=== PATIENT | female | born 1975 | race African-American/Black ===

== ENCOUNTER 2024-03-03 10:01 | Observation (INO) ==
--- NOTE | 2024-03-03 10:25 | Emergency Department Note ---
HPI - General Adult General Chief complaint: Abdominal Pain Stated complaint: blood in urine and cramping Time Seen by Provider: 03/03/24 10:19 Source: patient Mode of arrival: walk-in Limitations: no limitations History of Present Illness HPI narrative: This is a 48 year old female patient that presents to the ER with c/o right flank pain with blood in her urine for 3 days. Patient denies any painful urination, abdominal pain, chest pain, SOB, fever, chills, numbness, tingling, weakness or N/V Onset (ago): day(s) (3) Location: Reports back (rt flank) Radiation: Reports non-radiation Severity: mild Pain Consistency: Reports constant Relieving factors: Reports none Exacerbating factors: Reports none Associated symptoms: Reports denies other symptoms Treatments prior to arrival: Reports none Related Data Home Medications Medication Instructions Recorded Confirmed alprazolam 1 mg tablet mg 09/21/23 amlodipine 5 mg tablet mg 09/21/23 apixaban 5 mg tablet (Eliquis) mg 09/21/23 atorvastatin 40 mg tablet mg 09/21/23 blood sugar diagnostic (OneTouch 09/21/23 09/21/23 Verio test strips) blood-glucose meter,continuous 09/21/23 09/21/23 (Dexcom G7 Entrepreneurial Finance Professor) blood-glucose sensor (Dexcom G7 09/21/23 09/21/23 Sensor device) Previous Rx's Medication Instructions Recorded potassium chloride 10 mEq 10 meq PO DAILY low potassium #5 09/27/23 tablet,extended release tabs Allergies Allergy/AdvReac Type Severity Reaction Status Date / Time No Known Drug Allergies Allergy Verified 03/03/24 10:22 Review of Systems Status of ROS 10 or more systems reviewed and unremark able except as noted in history and below Constitutional Denies: fever, chills, change in weight, fatigue, malaise or night sweats Eyes Denies: change in vision, blurry vision, blind spots or light sensitivity Ears, nose, mouth, and throat Denies: throat pain, neck pain, throat swelling, difficulty swallowing, hoarseness or mouth pain Cardiovascular Denies: chest pain, palpitations, edema, swelling of feet/ankles or lightheadedness Respiratory Denies: shortness of breath, cough, wheezing, stridor, pain on inspiration or change in phlegm color Gastrointestinal Denies: abdominal pain, nausea, vomiting, coffee grounds in vomit, heartburn, diarrhea, constipation, bloating, change in bowel habits or painful bowel movements Genitourinary Denies: painful urination, urinary frequency, urinary urgency or urinary incontinence Musculoskeletal Reports: back pain (rt flank) Integumentary/Breast Denies: rash, itching, redness, skin pain, skin tenderness or skin swelling Neurological Denies: headache, numbness in extremities, weakness in extremities, lack of coordination, dizziness, vertigo or seizure-like activity Psychiatric Denies: anxiety, mood swings, panic attacks, change in sleep pattern or hopelessness Endocrine Denies: excessive urination, excessive thirst, fatigue, cold intolerance or excessive sweating Hematologic/Lymphatic Denies: easy bruising, easy bleeding or enlarged lymph nodes Allergic/Immunologic Denies: hives, throat swelling, tongue swelling, facial swelling or wheezing PFSH PFSH Medical History Hyperlipemia Pulmonary embolism DVT (deep venous thrombosis) Rotator cuff arthropathy of left shoulder Protein deficiency HTN (hypertension) Diabetes Surgical History History of tonsillectomy and adenoidectomy H/O: hysterectomy Social History Smoking status: never smoker Within the past year, how often did you have a drink containing alcohol: never Within the past year, how often did you have six or more drinks on one occasion: never Score interpretation: A score less than 3 is consistent with normal alcohol consumption. Problems where you live: no known problems Little interest or pleasure in doing things: not at all Feeling down, depressed, or hopeless: not at all Exam Constitutional: normal general appearance and no apparent distress Vital Signs - 24 hr 03/03/24 10:15 Temperature 97.5 F L Pulse Rate 81 Respiratory Rate 16 Blood Pressure 120/84 Pulse Oximetry 98 Oxygen Delivery Me thod Room Air HENMT: normocephalic, head/scalp atraumatic, hearing grossly normal bila terally, external ears normal, nasal mucous membranes normal, external nose normal, oral mucous membranes normal and oropharynx normal Eyes: PERRL, EOMs intact bilaterally, conjunctivae normal and no scleral icterus Neck/C-Spine: visual inspection normal, trachea midline and supple Lymph: no lymphadenopathy noted Chest: inspection of chest normal Respiratory: breath sounds equal bilaterally, normal respiratory effort, clear to auscultation bilaterally, no wheezes, no rales, no retractions and no use of accessory muscles Cardiovascular: normal heart rate noted, regular rhythm noted, no gallop, no rub, no murmur, no JVD, no clicks, peripheral pulses 2+ throughout and no additional abnormal heart sounds Gastrointestinal: abdomen normal to inspection, abdomen soft to palpation, nontender to palpation, nontender to percussion, nondistended, normoactive bowel sounds, no hepatosplenomegaly, no masses, no pulsatile mass, no ascites and no hernia Genitourinary: CVA tenderness noted (rt cva tenderness) Back/Pelvis: spine normal to inspection Extremities: normal to inspection, normal to palpation, no tenderness, full ROM, no joint enlargement and no deformity Neurology: no movement abnormality noted, gait normal, no fasciculations noted and GCS normal Skin: skin color normal Course Course Hospital Course: 1450: Due to patient having ongoing flank pain and pyelonephritis will admit patient to the medical floor for further evaluation and treatment. VSS, no s/s of acute distress noted Vital Signs Vital signs: Vital Signs Temperature 97.5 F L 03/03/24 10:15 Pulse Rate 81 03/03/24 10:15 Respiratory Rate 16 03/03/24 10:15 Blood Pressure 120/84 03/03/24 10:15 Pulse Oximetry 98 03/03/24 10:15 Oxygen Delivery Method Room Air 03/03/24 10:15 Temperature 97.5 F L 03/03/24 10:15 Pulse Rate 81 03/03/24 10:15 Respiratory Rate 16 03/03/24 10:15 Blood Pressure 120/84 03/03/24 10:15 Pulse Oximetry 98 03/03/24 10:15 Oxygen Delivery Method Room Air 03/03/24 10:15 Medical Decision Making Differential Diagnosis Differential Diagnosis: viral illness Medical Records Medical records reviewed: Yes I reviewed the patient's medical records Lab Data Lab results reviewed: Yes I reviewed the patient's lab results Labs: Lab Results 03/03/24 03/03/24 03/03/24 Range/Units 10:48 11:40 13:55 WBC 7.9 (4.3-9.3) K/uL RBC 4.2 (4.00-5.50) M/uL Hgb 11.7 L (12.5-15.8) gm/dL Hct 36.0 (35.9-46.7) % MCV 85.5 (81.0-93.7) fl MCH 27.7 (27.6-32.2) pg MCHC 32.4 L (33.1-35.3) g/dl RDW 14.8 H (11.4-14.2) % Plt Count 343 (152-353) K/uL MPV 7.4 (6.9-10.8) fl Gran % 61.6 (47.8-71.3) % Lymph % (Auto) 27.1 (20.0-43.0) % [place] % (Auto) 6.6 (3.6-9.8) % Eos % (Auto) 3.7 H (0.4-2.8) % Baso % (Auto) 1.0 H (0.1-0.85) Lymph # (Auto) 2.1 (1.1-3.1) [place] # (Auto) 0.5 L (1.1-3.1) Eos # (Auto) 0.3 H (0.0-0.2) Baso # (Auto) 0.1 (0.0-0.1) Absolute Gran (auto) 4.9 (2.3-6.0) Sodium 142 (136-145) mmol/L Potassium 3.8 (3.6-5.2) mmol/L Chloride 105.0 (98-107) mmol/L Carbon Dioxide 31 (21-32) mmol/L Anion Gap 6.0 (4-14) mEq/L BUN 6 L (7-18) mg/dL Creatinine 1.1 (0.6-1.3) mg/dL Estimated GFR 61.6 (>59.9) Glucose 150 H (70-110) mg/dL Lactic Acid 1.3 (0.27-1.43) mmol/L Calcium 8.7 (8.5-10.1) mg/dL Total Bilirubin 0.60 (0.0-1.0) mg/dL AST 16 (15-37) U/L ALT 20 L (30-65) U/L Alkaline Phosphatase 94 (50-136) U/L Total Protein 7.2 (6.4-8.2) g/dL Albumin 2.8 L (3.4-5.0) g/dL Urine Color Yellow (STRAW/YELL.) Urine Appearance Clear (CLEAR) Ur Specific [place] 1.005 (1.001-1.035) Urine Protein Negative (NEGATIVE) Urine Glucose (UA) Normal (NORMAL) Urine Ketones Negative (NEGATIVE) Urine Occult Blood 2+ (NEG - TRACE) Urine Nitrite Negative (NEGATIVE) Urine Bilirubin Negative (NEGATIVE) Urine Urobilinogen Normal (NORMAL) Ur Leukocyte Esterase Negative (NEGATIVE) Urine RBC 0 - 2 (0 - 5) Urine WBC Negative ( 0 - 5) Ur Epithelial Cells Few (Few/HPF) Amorphous Sediment Negative (Negative) Urine Bacteria Negative (Negative) Urine Mucus Negative (Negative) Urine Trichomonas Negative (Negative) Urine Yeast Negative (Negative) Fluid pH 6.0 (5 - 9) Discharge Plan Discharge Patient Disposition: Admitted As Observation Condition: Stable Chief Complaint: Abdominal Pain Clinical Impression: Pyelonephritis, UTI (urinary tract infection), Acute flank pain, Hematuria Prescriptions: No Action atorvastatin 40 mg tablet alprazolam 1 mg tablet Patient Comments: TAKE 1/2 (ONE-HALF) TABLET BY MOUTH EVERY DAY AT BEDTIME NEEDED FOR ANXIETY (DME) OneTouch Verio test strips Strip MISCELLANEOUS amlodipine 5 mg tablet (DME) Dexcom G7 Sensor Device MISCELLANEOUS Patient Comments: USE DIRECTED CHANGE EVERY 10 DAYS (DME) Dexcom G7 Entrepreneurial Finance Professor Misc MISCELLANEOUS Patient Comments: USE DIRECTED Eliquis 5 mg tablet Patient Comments: TAKE 1 TABLET BY MOUTH TWICE DAILY potassium chloride 10 mEq tablet extended release 10 meq PO DAILY Qty: 5 0RF Print Language: Sinhala Referrals: Provider,NO PCP [Primary Care Provider] - Time of Disposition: 14:52
[2024-03-03 10:54] LABS: Basophils #(Absolute) Auto 0.1 (0.0-0.1); Eosinophils#(Absolute)Auto 0.3 (0.0-0.2); Eosinophils%(Percent) Auto 3.7 % (0.4-2.8); Granulocytes % - Auto 61.6 % (47.8-71.3); Granulocytes#(Absolute)- Auto 4.9 (2.3-6.0); Mean Corpuscular Volume 85.5 fl (81.0-93.7); Monocytes #(Absolute)- Auto 0.5 (1.1-3.1); Monocytes %(Percent)- Auto 6.6 % (3.6-9.8); Platelet Count 343 K/uL (152-353); White Blood Count 7.9 K/uL (4.3-9.3)
[2024-03-03 11:00] LABS: Potassium 3.8 mmol/L (3.6-5.2)
[2024-03-03] MEDS: ONDANSETRON HCL/PF 4 MG/2 ML VIAL IVP ONE (12:50)
[2024-03-03] MEDS: MORPHINE SULFATE 4 MG/ML CARTRIDGE IVP ONE (12:51)
[2024-03-03] MEDS ORDERED: CEFTRIAXONE SODIUM 1 GM VIAL ONE (13:35)
[2024-03-03] MEDS ORDERED: 0.9 % SODIUM CHLORIDE 100ML 100 ML IV ONE (13:35)
[2024-03-03] MEDS ORDERED: 0.9 % SODIUM CHLORIDE 50 ML IV ONE (13:36)
[2024-03-03] MEDS: CEFTRIAXONE SODIUM 1 GM in 0.9 % SODIUM CHLORIDE MB+ 50 ML IV STA (13:40)
[2024-03-03 14:34] LABS: Urine Appearance CLEAR (CLEAR); Urine Color YELLOW (STRAW/YELL.)
[2024-03-03 14:35] LABS: Specific Gravity Urine 1.005 (1.001-1.035); Urine Amorphous Sediment Negative (Negative); Urine Blood 2+ (NEG - TRACE); Urine Urobilinogen Normal (NORMAL); Urine Yeast Negative (Negative)
[2024-03-03 16:49] LABS: INR 2.42
[2024-03-03] MEDS ORDERED: bisacodyL 10 MG SUPP.RECT PR PRN (17:02)
[2024-03-03] MEDS ORDERED: ONDANSETRON HCL/PF 4 MG/2 ML VIAL INJ PRN (17:02)
[2024-03-03] MEDS: MORPHINE SULFATE 2 MG/ML CARTRIDGE IV PRN (18:03)
[2024-03-04 05:09] LABS: Basophils #(Absolute) Auto 0.1 (0.0-0.1); Basophils%(Percent) Auto 0.7 (0.1-0.85); Eosinophils#(Absolute)Auto 0.3 (0.0-0.2); Eosinophils%(Percent) Auto 3.8 % (0.4-2.8); Granulocytes % - Auto 57.9 % (47.8-71.3); Granulocytes#(Absolute)- Auto 4.2 (2.3-6.0); Hematocrit 33.3 % (35.9-46.7); Mean Corpuscular Volume 84.1 fl (81.0-93.7); Monocytes #(Absolute)- Auto 0.5 (1.1-3.1); Monocytes %(Percent)- Auto 7.4 % (3.6-9.8); Platelet Count 310 K/uL (152-353); White Blood Count 7.2 K/uL (4.3-9.3)
[2024-03-04 05:25] LABS: INR 2.31
[2024-03-04 05:33] LABS: Potassium 3.5 mmol/L (3.6-5.2)
[2024-03-04 06:27] VITALS: RESP 19
[2024-03-04] MEDS: ACETAMINOPHEN 500 MG TABLET PO PRN (09:24)
[2024-03-04] MEDS: POTASSIUM CHLORIDE 10 MEQ CAPSULE.ER PO ONE (09:56)
[2024-03-04] MEDS: ALBUMIN HUMAN 25% 100 ML IV SCH (09:56)
[2024-03-04] MEDS: 0.9 % SODIUM CHLORIDE 500 ML IV ONE ×2 (10:48→12:30)
[2024-03-04] MEDS: CEFTRIAXONE SODIUM 1 GM in 0.9 % SODIUM CHLORIDE MB+ 50 ML IV SCH (12:30)
[2024-03-04 12:46] VITALS: BP 121/77; PULSE 93; TEMP 98.1
[2024-03-04] MEDS: MAGNESIUM OXIDE 400 MG TABLET PO SCH (14:46)
[2024-03-04] MEDS: POTASSIUM CHLORIDE 20 MEQ TAB.ER.PRT PO ONE (14:46)
--- NOTE | 2024-03-08 12:42 | Short Stay Summary ---
H&P: HPI History of Present Illness Chief complaint: Pyelonephritis, UTI, Flank pain Narrative: This is a 48 year old female patient that presents to the ER with c/o right flank pain with blood in her urine for 3 days. Patient denies any painful urination, abdominal pain, chest pain, SOB, fever, chills, numbness, tingling, weakness or N/V. Admitted patient for observation and treatment. Review of Systems Status of ROS 10 or more systems reviewed and unremark able except as noted in history and below Constitutional Denies: fever, chills, change in weight, fatigue, malaise or night sweats Eyes Denies: change in vision, blurry vision, blind spots or light sensitivity Ears, nose, mouth, and throat Denies: throat pain, neck pain, throat swelling, difficulty swallowing, hoarseness, mouth pain or vertigo Cardiovascular Denies: chest pain, palpitations, edema, swelling of feet/ankles, lightheadedness or shortness of breath with exertion Respiratory Denies: shortness of breath, cough, wheezing, stridor, pain on inspiration or change in phlegm color Gastrointestinal Denies: abdominal pain, nausea, vomiting, coffee grounds in vomit, heartburn, diarrhea, constipation, bloating, difficulty swallowing, change in bowel habits or painful bowel movements Genitourinary Denies: painful urination, urinary frequency, urinary urgency or urinary incontinence Musculoskeletal Reports: back pain (rt flank); Denies: neck pain Integumentary/Breast Denies: rash, itching, redness, skin pain, skin tenderness or skin swelling Neurological Denies: headache, numbness in extremities, weakness in extremities, lack of coordination, dizziness, vertigo or seizure-like activity Psychiatric Denies: anxiety, mood swings, panic attacks, change in sleep pattern or hopelessness Endocrine Denies: excessive urination, excessive thirst, fatigue, cold intolerance or excessive sweating Hematologic/Lymphatic Denies: easy bruising, easy bleeding or enlarged lymph nodes Allergic/Immunologic Denies: hives, throat swelling, tongue swelling, facial swelling or wheezing [facility] Medical History (Updated 03/08/24 @ 11:29 by LUMA Phelps) Hypoalbuminemia Hyperlipemia Pulmonary embolism DVT (deep venous thrombosis) Rotator cuff arthropathy of left shoulder Protein deficiency HTN (hypertension) Diabetes Surgical History History of tonsillectomy and adenoidectomy H/O: hysterectomy Social History Smoking status: never smoker Within the past year, how often did you have a drink containing alcohol: never Within the past year, how often did you have six or more drinks on one occasion: never Score interpretation: A score less than 3 is consistent with normal alcohol consumption. Problems where you live: no known problems Highest level of school completed/degree received: College Little interest or pleasure in doing things: not at all Feeling down, depressed, or hopeless: not at all Meds Home Medications and Allergies Home Medications Medication Instructions Recorded Confirmed Type amlodipine 5 mg tablet 5 mg PO QPM 09/21/23 03/04/24 History atorvastatin 40 mg tablet 40 mg PO BEDTIME 09/21/23 03/04/24 History blood-glucose meter,continuous 09/21/23 03/04/24 History (Dexcom G7 Paunch Trimmer) blood-glucose sensor (Dexcom G7 09/21/23 03/04/24 History Sensor device) ciprofloxacin HCl 750 mg tablet 750 mg PO Q12H acute 03/04/24 Rx pyelonephritis right #10 tabs famotidine 40 mg tablet (Pepcid) 40 mg PO BID gerd #20 tabs 03/04/24 Rx gabapentin 300 mg capsule 300 mg PO BEDTIME 03/04/24 03/04/24 History lisinopril 20 mg tablet 30 mg PO DAILY 03/04/24 03/04/24 History paroxetine HCl 40 mg tablet 40 mg PO DAILY 03/04/24 03/04/24 History saxagliptin 5 mg tablet 5 mg PO DAILY 03/04/24 03/04/24 History warfarin 10 mg tablet (Jantoven) 10 mg PO DAILY 03/04/24 03/04/24 History Allergies Allergy/AdvReac Type Severity Reaction Status Date / Time No Known Drug Allergies Allergy Verified 03/03/24 17:20 Exam Exam: Patient in wilson's position upon entering room for exam. Constitutional: normal general appearance, no apparent distress, abnormal body habitus (obese), no limitations and alert Vital Signs - 24 hr 03/03/24 16:52 03/03/24 17:02 03/03/24 20:00 Temperature 98.1 F 98.2 F 98.6 F Pulse Rate 72 Pulse Rate [Right] 78 Respiratory Rate 16 19 18 Blood Pressure 124/70 Blood Pressure [Le ft Arm] 131/76 126/81 Pulse Oximetry 98 96 96 Oxygen Delivery Me thod Room Air Room Air 03/04/24 00:00 03/04/24 04:00 03/04/24 08:00 Temperature 97.9 F 98.0 F 97.7 F Pulse Rate Pulse Rate [Right] 67 71 74 Respiratory Rate 18 19 19 Blood Pressure Blood Pressure [Le ft Arm] 120/72 118/73 124/78 Pulse Oximetry 96 98 97 Oxygen Delivery Me thod Room Air Room Air Room Air 03/04/24 12:00 Temperature 98.1 F Pulse Rate Pulse Rate [Right] 93 H Respiratory Rate 19 Blood Pressure Blood Pressure [Le ft Arm] 121/77 Pulse Oximetry 96 Oxygen Delivery Me thod Room Air HENMT: normocephalic, head/scalp atraumatic, hearing grossly normal bilaterally, external ears normal, nasal mucous membranes normal, external nose normal, oral mucous membranes normal and oropharynx normal Eyes: PERRL, EOMs intact bilaterally, conjunctivae normal and no scleral icterus Neck/C-Spine: visual inspection normal, trachea midline and supple Lymph: no lymphadenopathy noted Chest: inspection of chest normal Respiratory: breath sounds equal bilaterally, normal respiratory effort, clear to auscultation bilaterally, no wheezes, no rales, no retractions and no use of accessory muscles Cardiovascular: normal heart rate noted, regular rhythm noted, no gallop, no rub, no murmur, no JVD, no clicks, peripheral pulses 2+ throughout and no additional abnormal heart sounds Gastrointestinal: abdomen normal to inspection, abdomen soft to palpation, nontender to palpation, nontender to percussion, nondistended, normoactive bowel sounds, no hepatosplenomegaly, no masses, no pulsatile mass, no ascites and no hernia Genitourinary: CVA tenderness noted (rt cva tenderness) Back/Pelvis: spine normal to inspection Extremities: normal to inspection, normal to palpation, no tenderness, full ROM, no joint enlargement and no deformity Neurology: no movement abnormality noted, gait normal, no fasciculations noted and GCS normal Psychiatry: Mental Status Exam documented within this Exam's Psych section mental status grossly normal, oriented x3, thought process normal, cooperative, affect normal and memory normal Skin: skin color normal Assessment and Plan Assessment and Plan (1) Acute pyelonephritis: Code(s): N10 - Acute pyelonephritis (2) Hypokalemia: Code(s): E87.6 - Hypokalemia (3) HTN (hypertension): Qualifiers: Hypertension type: primary hypertension Qualified Code(s): I10 - Essential (primary) hypertension Code(s): I10 - Essential (primary) hypertension (4) Diabetes: Qualifiers: Diabetes mellitus type: type 2 Diabetes mellitus lobsterman insulin use: with lobsterman use Code(s): E11.9 - Type 2 diabetes mellitus without complications (5) Hyperlipemia: Qualifiers: Hyperlipidemia type: unspecified Qualified Code(s): E78.5 - Hyperlipidemia, unspecified Code(s): E78.5 - Hyperlipidemia, unspecified (6) Hypoalbuminemia: Code(s): E88.09 - Other disorders of plasma-protein metabolism, not elsewhere classified (7) Hypomagnesemia: Code(s): E83.42 - Hypomagnesemia (8) GERD without esophagitis: Code(s): K21.9 - Gastro-esophageal reflux disease without esophagitis (9) DVT (deep venous thrombosis): Qualifiers: Affected thrombotic vein of extremity: unspecified vein of extremity Chronicity: unspecified Laterality: unspecified laterality Code(s): I82.409 - Acute embolism and thrombosis of unspecified deep veins of unspecified lower extremity Plan Potassium Chloride 20 meq PO ONCE Sodium Chloride 500 mls @ 250 mls/hr IV ONCE Albumin Human 100 mls @ 60 mls/hr IV ONCE Acetaminophen 500 mg PO Q6H PRN Bisacodyl 10 mg MD Daily PRN Morphine Sulfate 2 mg IV Q4H PRN Ondansetron Hcl 4 mg INJ Q6H PRN Ceftriaxone Sodium 1 gm in Sodium Chloride 50 mls @ 100 mls/hr IV Q24H Magnesium Oxide 400 mg PO Daily Patient acute symptoms and problems have resolved and returning to patient's baseline. Patient is ready to discharge home. Results Labs Labs: CBC WBC 7.2 K/uL (4.3-9.3) 03/04/24 05:10 RBC 4.0 M/uL (4.00-5.50) 03/04/24 05:10 Hgb 11.1 gm/dL (12.5-15.8) L 03/04/24 05:10 Hct 33.3 % (35.9-46.7) L 03/04/24 05:10 MCV 84.1 fl (81.0-93.7) 03/04/24 05:10 MCH 27.9 pg (27.6-32.2) 03/04/24 05:10 MCHC 33.1 g/dl (33.1-35.3) 03/04/24 05:10 RDW 14.5 % (11.4-14.2) H 03/04/24 05:10 Plt Count 310 K/uL (152-353) 03/04/24 05:10 MPV 7.3 fl (6.9-10.8) 03/04/24 05:10 Gran % 57.9 % (47.8-71.3) 03/04/24 05:10 Lymph % (Auto) 30.2 % (20.0-43.0) 03/04/24 05:10 [place] % (Auto) 7.4 % (3.6-9.8) 03/04/24 05:10 Eos % (Auto) 3.8 % (0.4-2.8) H 03/04/24 05:10 Baso % (Auto) 0.7 (0.1-0.85) 03/04/24 05:10 Lymph # (Auto) 2.2 (1.1-3.1) 03/04/24 05:10 [place] # (Auto) 0.5 (1.1-3.1) L 03/04/24 05:10 Eos # (Auto) 0.3 (0.0-0.2) H 03/04/24 05:10 Baso # (Auto) 0.1 (0.0-0.1) 03/04/24 05:10 Absolute Gran (auto) 4.2 (2.3-6.0) 03/04/24 05:10 BMP Sodium 143 mmol/L (136-145) 03/04/24 05:05 Potassium 3.5 mmol/L (3.6-5.2) L 03/04/24 05:05 Chloride 106.0 mmol/L (98-107) 03/04/24 05:05 Carbon Dioxide 32 mmol/L (21-32) 03/04/24 05:05 Anion Gap 5.0 mEq/L (4-14) 03/04/24 05:05 BUN 6 mg/dL (7-18) L 03/04/24 05:05 Creatinine 1.1 mg/dL (0.6-1.3) 03/04/24 05:05 Estimated GFR 61.6 (>59.9) 03/04/24 05:05 Glucose 134 mg/dL (70-110) H 03/04/24 05:05 Calcium 8.4 mg/dL (8.5-10.1) L 03/04/24 05:05 Magnesium 1.6 mg/dL (1.8-2.4) L 03/04/24 05:45 Total Bilirubin 0.43 mg/dL (0.0-1.0) 03/04/24 05:05 AST 15 U/L (15-37) 03/04/24 05:05 ALT 22 U/L (30-65) L 03/04/24 05:05 Alkaline Phosphatase 77 U/L (50-136) 03/04/24 05:05 Total Protein 6.3 g/dL (6.4-8.2) L 03/04/24 05:05 Albumin 2.4 g/dL (3.4-5.0) L 03/04/24 05:05 Liver Function Total Bilirubin 0.43 mg/dL (0.0-1.0) 03/04/24 05:05 AST 15 U/L (15-37) 03/04/24 05:05 ALT 22 U/L (30-65) L 03/04/24 05:05 Alkaline Phosphatase 77 U/L (50-136) 03/04/24 05:05 Total Protein 6.3 g/dL (6.4-8.2) L 03/04/24 05:05 Albumin 2.4 g/dL (3.4-5.0) L 03/04/24 05:05 Urine Urine Color Yellow (STRAW/YELL.) 03/03/24 11:40 Urine Appearance Clear (CLEAR) 03/03/24 11:40 Ur Specific [place] 1.005 (1.001-1.035) 03/03/24 11:40 Urine Protein Negative (NEGATIVE) 03/03/24 11:40 Urine Glucose (UA) Normal (NORMAL) 03/03/24 11:40 Urine Ketones Negative (NEGATIVE) 03/03/24 11:40 Urine Occult Blood 2+ (NEG - TRACE) 03/03/24 11:40 Urine Nitrite Negative (NEGATIVE) 03/03/24 11:40 Urine Bilirubin Negative (NEGATIVE) 03/03/24 11:40 Urine Urobilinogen Normal (NORMAL) 03/03/24 11:40 Ur Leukocyte Esterase Negative (NEGATIVE) 03/03/24 11:40 Imaging Imaging ordered: CT scan - abdomen Radiologist's impression: CT ABDOMEN PELVIS WO CON Date of Service: 03/03/24 HISTORY: FLANK PAIN; BLOOD IN URINE; ABDOMINAL CRAMPING; CV. COMPARISON: 04/19/2022 TECHNIQUE: Unenhanced axial images were obtained through the abdomen and pelvis using renal stone protocol. Reformatted images were obtained as well. Lack of oral and IV contrast limits diagnostic sensitivity The above CT scan was done with automated exposure control and the mA and kV was adjusted to obtain quality images according to patient size. FINDINGS: Lung bases: No acute findings. Liver: Fatty liver. No acute finding or focal lesion GB/Biliary: No gallstones or dilated ducts Spleen: Normal size and density Pancreas: No acute findings. No pseudocyst or dilated duct Adrenal Glands: No mass Kidneys: No obstructing stone, hydronephrosis or solid lesion. There is right perinephric stranding and urothelial thickening which may represent pyelonephritis/ascending urinary tract infection. No solid-appearing lesions. Abdominal aorta: Tapers normally Retroperitoneum: No pathologically enlarged lymph nodes noted. Bowel: No thickened or dilated loops of bowel, free fluid, free air, pneumatosis or abscess. Normal appendix. No CT evidence for diverticulitis or obstruction Bladder/: Ureters and bladder unremarkable. Hysterectomy. No pelvic or adnexal mass noted. Osseous: Degenerative changes in the thoracolumbar spine. No acute findings or bony lesions. IMPRESSION: No CT evidence for obstructing stone or solid-appearing lesions. Extensive right perinephric stranding and urothelial thickening may represent pyelonephritis and ascending urinary tract infection. Correlate with white count and urinalysis. No CT evidence for appendicitis or obstruction. DS: Providers Provider Date of admission: 03/03/24 15:02 Primary care physician: Amor Johnson (Sergio) Admitting clinician: Veronique Alvarado Attending physician on admission: Lia Arteaga Attending physician on discharge: Lia Arteaga Discharging clinician: Lia Arteaga Anticipated date of discharge: 03/04/24 DS: Summary Hospital Course Hospital Course: This is a 48 year old female patient that presents to the ER with c/o right flank pain with blood in her urine for 3 days. Patient denies any painful urination, abdominal pain, chest pain, SOB, fever, chills, numbness, tingling, weakness or N/V. Admitted patient to med/surg for observation and treatment. Patient responded well to treatment plan and hospital stay has been uneventful, yet, beneficial. Acute symptoms and problems have been resolved and patient is ready to discharge home. Patient is to follow up with PCP on Thursday of this following week for post hospital appointment; outpatient Renal Ultrasound is recommended due to acute pyelonephritis. Status at Discharge Functional status at discharge: independent ambulation Overall status at discharge: patient is back to baseline Time Spent with Patient Time attestation: Total time spent providing and/or coordinating discharge services: Time spent: greater than 30 minutes Discharge Plan Discharge Disposition: Home, Self-Care Condition: Improved Discharge Medications: New ciprofloxacin HCl 750 mg tablet 750 mg PO Q12H Qty: 10 0RF Rx Instructions: increase water intake and take medication with food famotidine [Pepcid] 40 mg tablet 40 mg PO BID Qty: 20 0RF Continued atorvastatin 40 mg tablet 40 mg PO BEDTIME amlodipine 5 mg tablet 5 mg PO QPM (DME) Dexcom G7 Sensor Device MISCELLANEOUS Patient Comments: USE DIRECTED CHANGE EVERY 10 DAYS (DME) Dexcom G7 Paunch Trimmer Misc MISCELLANEOUS Patient Comments: USE DIRECTED gabapentin 300 mg capsule 300 mg PO BEDTIME Patient Comments: TAKE 1 CAPSULE BY MOUTH ONCE DAILY AT NIGHT AT BEDTIME lisinopril 20 mg tablet 30 mg PO DAILY paroxetine HCl 40 mg tablet 40 mg PO DAILY saxagliptin 5 mg tablet 5 mg PO DAILY Patient Comments: TAKE 1 TABLET ONCE DAILY warfarin [Jantoven] 10 mg tablet 10 mg PO DAILY Patient Comments: TAKE 1 TABLET DAILY OR DIRECTED BY PHYSICIAN Discharge Orders: Discharge Order (Routine); Ordered 03/04/24 Ordered By: Lia Arteaga Activity: increase activity as tolerated Diet: diabetic diet and other Diet Detail: avoid citrus food and drink and increase water intake and cranberry juice and avoid coffee and sodas as well Interventions: Discharge Assessment Last Done: 03/04/24 15:39 MED/SURG & ICU Observation Charge Sheet Last Done: 03/04/24 05:49 Patient Instructions: Kidney Infection (DC) Activity Restrictions/Additional Instructions: avoid citrus food and drink and increase water intake and cranberry juice and avoid coffee and sodas as well. follow up with Her PCP in [place] and there office is closed today and the patient will contact them for an appointment next week. she understands the need for Renal Ultrasound and Urology follow up if Hydronephrosis persists although she acts reluctant to do so. If pain recurs or worsens or if she has any concerns or questions she will return to the ER brisa if her PCP not available. START CIPROFLOXACIN TODAY 03/04/24 AND TAKE DIRECTED UNTIL GONE. Forms: Portal/Health Info Access Inst Follow-Ups: DR. AMOR JOHNSON [Other] - 03/15/24 1:15 pm Provider,NO PCP [Physician] - Discharge Date/Time: 03/04/24 15:05
== END 2024-03-04 15:05 | disposition home or self-care (01) ==
LOC: MS 10:01 → ED 10:01 → MS 16:30
PROVIDERS: ADMIT Family Medicine; ATTEND Family Medicine
DX: I10 Essential (primary) hypertension; E83.42 Hypomagnesemia; E88.09 Other disorders of plasma-protein metabolism, not elsewhere classified; N39.0 Urinary tract infection, site not specified; Z79.4 Long term (current) use of insulin; I82.409 Acute embolism and thrombosis of unspecified deep veins of unspecified lower extremity; K21.9 Gastro-esophageal reflux disease without esophagitis; R10.9 Unspecified abdominal pain; N10 Acute pyelonephritis; E78.49 Other hyperlipidemia; E87.6 Hypokalemia; R31.9 Hematuria, unspecified; E11.9 Type 2 diabetes mellitus without complications